=== PATIENT | male | born 1980 | race Caucasian/White ===

== ENCOUNTER → 2017-11-23 | Outpatient (CLI) | payer OTHER ==
[~2017-11-23] MED LIST: CLR10 PO; CLX20 PO; FLUT0.15 NAE; HYDR-5688 PO; PRVHFAIN PO
--- NOTE | 2017-11-23 07:54 | DIAGNOSTIC IMAGING REPORT ---
ABDOMEN COMPLETE (US) HISTORY: Pain. Nausea. EPIGASTRIC PAIN, ABDOMINAL DISTENTION. COMPARISON: 04/14/2012 FINDINGS: Pancreas: The pancreas demonstrates a normal echotexture. Liver: Fatty infiltration Gallbladder: Moderately contracted. No shadowing gallstones. CBD: 4 mm Kidneys: No hydronephrosis. 2 cm complex left renal cyst unchanged from the prior study. Spleen: Enlarged at 14 cm. This is unchanged in the prior study. Aorta: Normal in caliber. IVC: Patent. IMPRESSION: 1. Fatty infiltration of liver. 2. Contracted gallbladder. 3. Moderate splenomegaly 4. Complex left renal cyst. 5. All findings unchanged from the prior study. The above report was generated using voice recognition software. It may contain grammatical, syntax or spelling errors. Electronically signed by: Wojciech Sheffield M.D. 11/23/2017 7:52 AM Dictated Date/Time: 11/23/2017 7:50 AM
== END | disposition home or self-care (01) ==
LOC: C.ULTR 07:15
PROVIDERS: ATTEND Internal Medicine Gastroenterology
DX: R10.13 Epigastric pain (principal); R14.0 Abdominal distension (gaseous)

== ENCOUNTER 2018-04-04 19:56 | Emergency (ER) | payer OTHER ==
[~2018-04-04] VITALS: Ht 180.3 cm; Wt 96.6 kg
[2018-04-04 20:00] VITALS: Ht 180.3 cm; Wt 96.6 kg
[2018-04-04] MEDS ORDERED: ACETAMINOPHEN 500 MG TAB PO STA (20:11)
[2018-04-04] MEDS ORDERED: SODIUM CHLORIDE 0.9% 1000ML 2,000 ML IV STA (20:11)
--- NOTE | 2018-04-04 20:26 | EMERGENCY ROOM VISIT NOTE ---
History Report prepared by Nancy: Zheng Odonnell Under the Supervision of: Dr. Stephon Canales M.D. First contact with patient: 20:05 Chief Complaint: FEVER Stated Complaint: FEVER, NOT FEELING WELL FOR 10 DAYS History of Present Illness The patient is a 38 year old male who presents to the Emergency Room with complaints of a worsening illness that began 12 days ago. Patient states he has a headache, sore throat, and cough. He states he took Tylenol 6 hours ago. He adds he takes albuterol but it has not helped resolve his cough. Patient states he was at the doctors 2 days ago where he was discharged on prednisone. He states he felt good yesterday but around mid-day started to experience constant diarrhea. He adds he has not been able to get warm and has felt dizzy since. Patient adds that it "hurts to move anything" and adds his body aches feel worse now than his headache. Past medical history includes viral meningitis which the patient states his symptoms over the past day have felt similar to. Patient adds that the first 10 days of his illness felt like a "regular cold". He denies any recent travels. Patient adds he takes Flonase and Ferritin. [place] denies [place] bites. Patient denies nausea, vomiting, and rashes. Source of History: patient Onset: 12 days ago Position: head Timing: worsening Modifying Factors (Relieving): other (None) Associated Symptoms: + headache, + sorethroat, + cough, + diarrhea, No nausea, No vomiting, No rash Note: Positive body aches. Review of Systems See HPI for pertinent positives and negatives. A total of ten systems were reviewed and were otherwise negative. Past Medical & Surgical Medical Problems: (1) Sinus headache (2) Sinus infection Family History No pertinent family history Social History Smoking Status: Never Smoker Drug Use: none Marital Status: Housing Status: lives with family Occupation Status: employed Current/Historical Medications Scheduled Citalopram Hydrobromide (Citalopram Hydrobromide), 1 DOSE PO DAILY Escitalopram (Lexapro), 1 DOSE PO DAILY Fluticasone Propionate (Nasal) (Flonase Allergy Relief), 2 SPRAYS ROMAINE DAILY Loratadine (Claritin), 10 MG PO DAILY Scheduled PRN Albuterol (Ventolin Hfa), 2 PUFF PO DIRECTED PRN for Shortness of Breath Allergies Coded Allergies: No Known Allergies (Unverified , 04/04/18) Physical Exam Vital Signs Date Time Temp Pulse Resp B/P (MAP) Pulse Ox O2 Delivery O2 Flow Rate FiO2 04/04/18 22:55 88 18 112/60 98 04/04/18 21:59 37.7 99 22 115/56 96 Room Air 04/04/18 20:00 39.3 104 22 120/75 96 Room Air Physical Exam Physical Exam GENERAL: He is oriented to person, place, and time. He appears well-developed and well-nourished. He does not appear distressed. HENT: Exam performed. Head: Pain on palpation on frontal and maxillary sinuses otherwise normocephalic and atraumatic. Right Ear: External ear normal. No mastoid tenderness. Left Ear: External ear normal. No mastoid tenderness. Mouth/Throat: The oropharynx is clear and moist. No trismus in the jaw. No dental abscesses or uvula swelling. No oropharyngeal exudate or tonsillar abscesses. EYES: Conjunctivae and EOM are normal. Pupils are equal, round, and reactive to light. Right eye exhibits no discharge. Left eye exhibits no discharge. No scleral icterus. NECK: Normal range of motion. Neck supple. No JVD present. No spinous process tenderness present. No carotid bruit present. No rigidity. No tracheal deviation and normal range of motion present. No Brudzinski's sign and no Kernig 's sign noted. CV: Tachycardic rate, regular rhythm, normal heart sounds and intact distal pulses. There is no peripheral edema. Palpable radial pulses bue. PULM/CHEST: Effort normal and breath sounds normal. No respiratory distress. No stridor. He has no wheezes. He has no rales. Chest Wall: He exhibits no tenderness. ABD: The abdomen is soft. Bowel sounds are normal. He has no distension. No mass is present. There is no tenderness. There is no rebound, no guarding, no Lilly's sign and no tenderness at McBurney's point. Rovsig negative. MUSC/SKEL: Normal range of motion. There is no peripheral edema, tenderness or deformity. LYMPH: No cervical adenopathy. NEURO: He is alert and oriented to person, place, and time. He has normal strength. No cranial nerve deficit or sensory deficit. Coordination and gait normal. GCS eye subscore is 4. GCS verbal subscore is 5. GCS motor subscore is 6. Cerebellar tests wnl. SKIN: Skin is warm and dry. He is not diaphoretic. PSYCH: He has a normal mood and affect. Behavior is normal. Judgment and thought content normal. Medical Decision & Procedures ER Provider Diagnostic Interpretation: Radiology results as stated below per my review and radiologist interpretation: CHEST 2 VIEWS ROUTINE CLINICAL HISTORY: ro pneumonia dyspnea and cough. COMPARISON STUDY: No previous studies for comparison. FINDINGS: The bones soft tissues and hemidiaphragms are normal. The cardiomediastinal silhouette is normal. The lungs are clear. The pulmonary vasculature is normal. IMPRESSION: Negative chest. The above report was generated using voice recognition software. It may contain grammatical, syntax or spelling errors. Electronically signed by: Wojciech Sheffield M.D. 04/04/2018 8:49 PM Laboratory Results 04/04/18 20:23 Red Blood Count 4.90, Mean Corpuscular Volume 80.8, Mean Corpuscular Hemoglobin 28.4, Mean Corpuscular Hemoglobin Concent 35.1, Mean Platelet Volume 10.7, Neutrophils (%) (Auto) 70.0, Lymphocytes (%) (Auto) 17.0, Monocytes (%) (Auto) 12.4, Eosinophils (%) (Auto) 0.1, Basophils (%) (Auto) 0.1, Neutrophils # (Auto ) 5.97, Lymphocytes # (Auto) 1.45, Monocytes # (Auto) 1.06, Eosinophils # (Auto ) 0.01, Basophils # (Auto) 0.01 04/04/18 20:23 Test 04/04/18 20:23 04/04/18 21:30 White Blood Count 8.53 K/uL (4.8-10.8) Red Blood Count 4.90 M/uL (4.7-6.1) Hemoglobin 13.9 g/dL (14.0-18.0) Hematocrit 39.6 % (42-52) Mean Corpuscular Volume 80.8 fL (80-100) Mean Corpuscular Hemoglobin 28.4 pg (25-34) Mean Corpuscular Hemoglobin Concent 35.1 g/dl (32-36) Platelet Count 180 K/uL (130-400) Mean Platelet Volume 10.7 fL (7.4-10.4) Neutrophils (%) (Auto) 70.0 % Lymphocytes (%) (Auto) 17.0 % Monocytes (%) (Auto) 12.4 % Eosinophils (%) (Auto) 0.1 % Basophils (%) (Auto) 0.1 % Neutrophils # (Auto) 5.97 K/uL (1.4-6.5) Lymphocytes # (Auto) 1.45 K/uL (1.2-3.4) Monocytes # (Auto) 1.06 K/uL (0.11-0.59) Eosinophils # (Auto) 0.01 K/uL (0-0.5) Basophils # (Auto) 0.01 K/uL (0-0.2) RDW Standard Deviation 38.4 fL (36.4-46.3) RDW Coefficient of Variation 13.1 % (11.5-14.5) Immature Granulocyte % (Auto) 0.4 % Immature Granulocyte # (Auto) 0.03 K/uL (0.00-0.02) Anion Gap 9.0 mmol/L (3-11) Est Creatinine Clear Calc Drug Dose 89.7 ml/min Estimated GFR () 77.7 Estimated GFR (Non- 67.1 BUN/Creatinine Ratio 14.7 (10-20) Lactic Acid Level 1.3 mmol/L (0.4-2.0) Calcium Level 8.5 mg/dl (8.5-10.1) Total Bilirubin 0.5 mg/dl (0.2-1) Direct Bilirubin 0.1 mg/dl (0-0.2) Aspartate Amino Transf (AST/SGOT) 19 U/L (15-37) Alanine Aminotransferase (ALT/SGPT) 24 U/L (12-78) Alkaline Phosphatase 45 U/L (45-117) Total Protein 6.1 gm/dl (6.4-8.2) Albumin 3.5 gm/dl (3.4-5.0) Lipase 147 U/L (73-393) Lyme Disease IgG Antibody NEG (NEG) Lyme Disease IgM Antibody NEG (NEG) Urine Color DK YELLOW Urine Appearance CLEAR (CLEAR) Urine pH 6.0 (4.5-7.5) Urine Specific [place] 1.028 (1.000-1.030) Urine Protein NEG (NEG) Urine Glucose (UA) NEG (NEG) Urine Ketones TRACE (NEG) Urine Occult Blood NEG (NEG) Urine Nitrite NEG (NEG) Urine Bilirubin NEG (NEG) Urine Urobilinogen NEG (NEG) Urine Leukocyte Esterase NEG (NEG) Laboratory results reviewed by me Medications Administered Medications (Trade) Dose Ordered Sig/[place] Route Start Time Stop Time Status Last Admin Dose Admin Sodium Chloride 2,000 ml @ 999 mls/hr Q2H1M STAT IV 04/04/18 20:11 04/04/18 22:11 DC 04/04/18 20:22 999 MLS/HR Acetaminophen (Tylenol Tab) 1,000 mg NOW STAT PO 04/04/18 20:11 04/04/18 20:14 DC 04/04/18 20:21 1,000 MG ED Course 2005: The patient was evaluated in room C4. A complete history and physical exam was performed. 2011: Sodium Chloride 2000 ml @ 999 mls/hr IV and Tylenol Tab 1000mg PO 2246: Status post Tylenol and 2 L IV fluids, repeat vital signs stable. Patient states he feels better and his body aches and headache have resolved. Labs within normal limits including no elevated white count or lactic acid. Urinalysis and chest x-ray within normal limits. Patient states he has had multiple loose bowel movements while in the emergency department. No bloody stools or melena. No nausea or vomiting. Repeat abdominal exam within normal limits. Patient denies any recent antibiotic usage or travel. No suspicious food intake to cause the diarrhea. No meningeal signs on exam, Kernig and Brudzinski negative, no nuchal rigidity. Clinically there is very low concern for meningitis. I did have a very extensive discussion with the patient, significant other, and father at bedside about the possibilities of bacterial versus viral meningitis given his initial presentation and his history of having viral meningitis. I did offer to perform lumbar puncture, however after discussion with the patient and family they opted to not have lumbar puncture performed. Return precautions discussed with patient.DISCHARGE - Plan of care discussed with patient and questions answered. The patient was given both verbal and printed discharge instructions. The patient verbalized understanding and ability to comply. The patient is to seek outpatient follow up as noted in the discharge instructions. The patient verbalized understanding and ability to comply. The patient is discharged in stable condition. The patient was instructed to return for worsening symptom Medical Decision Status post Tylenol and 2 L IV fluids, repeat vital signs stable. Patient states he feels better and his body aches and headache have resolved. Labs within normal limits including no elevated white count or lactic acid. Urinalysis and chest x-ray within normal limits. Patient states he has had multiple loose bowel movements while in the emergency department. No bloody stools or melena. No nausea or vomiting. Repeat abdominal exam within normal limits. Patient denies any recent antibiotic usage or travel. No suspicious food intake to cause the diarrhea. No meningeal signs on exam, Kernig and Brudzinski negative, no nuchal rigidity. Clinically there is very low concern for meningitis. I did have a very extensive discussion with the patient, significant other, and father at bedside about the possibilities of bacterial versus viral meningitis given his initial presentation and his history of having viral meningitis. I did offer to perform lumbar puncture, however after discussion with the patient and family they opted to not have lumbar puncture performed. Return precautions discussed with patient.DISCHARGE - Plan of care discussed with patient and questions answered. The patient was given both verbal and printed discharge instructions. The patient verbalized understanding and ability to comply. The patient is to seek outpatient follow up as noted in the discharge instructions. The patient verbalized understanding and ability to comply. The patient is discharged in stable condition. The patient was instructed to return for worsening symptom Medication Reconcilliation Current Medication List: was personally reviewed by me Blood Pressure Screening Patient's blood pressure: Normal blood pressure Blood pressure disposition: Did not require urgent referral Impression Primary Impression: Viral infection Scribe Attestation The scribe's documentation has been prepared under my direction and personally reviewed by me in its entirety. I confirm that the note above accurately reflects all work, treatment, procedures, and medical decision making performed by me. The chart was completed utilizing [employer] Speech voice recognition software. Grammatical errors, random word insertions, pronoun errors, and incomplete sentences are an occasional consequence of this system due to software limitations, ambient noise, and hardware issues. Any formal questions or concerns about the content, text, or information contained within the body of this dictation should be directly addressed to the physician for clarification. Departure Information Dispostion Home / Self-Care Referrals Amadeo Batista MD (PCP) Forms HOME CARE DOCUMENTATION FORM, IMPORTANT VISIT INFORMATION Patient Instructions ED Viral Syndrome, My [facility] Additional Instructions Return to the emergency department if you develop fever greater than 100.4 that is not controlled with Tylenol or Motrin, light sensitivity, intractable headache, or your symptoms worsen.
[2018-04-04 20:33] LABS: BASO % 0.1 %; BASO ABS # 0.01 K/uL (0-0.2); EOS % 0.1 %; EOS ABS # 0.01 K/uL (0-0.5); HEMATOCRIT 39.6 % (42-52); HEMOGLOBIN 13.9 g/dL (14.0-18.0); IG# 0.03 K/uL (0.00-0.02); LYMPH ABS # 1.45 K/uL (1.2-3.4); MEAN CELL VOLUME 80.8 fL (80-100); MEAN CORPUSCULAR HEMOGLOBIN 28.4 pg (25-34); MEAN CORPUSCULAR HGB CONC 35.1 g/dl (32-36); MEAN PLATELET VOLUME 10.7 fL (7.4-10.4); MONO % 12.4 %; MONO ABS # 1.06 K/uL (0.11-0.59); NEUT ABS # 5.97 K/uL (1.4-6.5); PLATELET COUNT 180 K/uL (130-400); RED CELL DISTRIBUTION WIDTH CV 13.1 % (11.5-14.5); RED CELL DISTRIBUTION WIDTH SD 38.4 fL (36.4-46.3); WHITE BLOOD COUNT 8.53 K/uL (4.8-10.8)
[2018-04-04] MEDS ORDERED: ESCI10TA17 PO (20:45)
[2018-04-04] MEDS ORDERED: CITA10TA4 PO (20:45)
--- NOTE | 2018-04-04 20:50 | DIAGNOSTIC IMAGING REPORT ---
CHEST 2 VIEWS ROUTINE CLINICAL HISTORY: ro pneumonia dyspnea and cough. COMPARISON STUDY: No previous studies for comparison. FINDINGS: The bones soft tissues and hemidiaphragms are normal. The cardiomediastinal silhouette is normal. The lungs are clear. The pulmonary vasculature is normal. IMPRESSION: Negative chest. The above report was generated using voice recognition software. It may contain grammatical, syntax or spelling errors. Electronically signed by: Wojciech Sheffield M.D. 04/04/2018 8:49 PM Dictated Date/Time: 04/04/2018 8:48 PM
[2018-04-04 21:00] LABS: ALBUMIN 3.5 gm/dl (3.4-5.0); CALCIUM 8.5 mg/dl (8.5-10.1); CREATININE 1.35 mg/dl (0.60-1.40); TOTAL PROTEIN 6.1 gm/dl (6.4-8.2)
[2018-04-04 21:03] LABS: POTASSIUM 3.4 mmol/L (3.5-5.1)
[2018-04-04 21:59] VITALS: TEMP 37.7
[2018-04-04 22:55] VITALS: BP 112/60; PULSE 88; O2SAT 98
== END 2018-04-04 22:50 | disposition home or self-care (01) ==
LOC: C.EDB 19:57 → C.EDC 22:50
DX: B34.9 Viral infection, unspecified (principal); R00.0 Tachycardia, unspecified; Z79.899 Other long term (current) drug therapy

== ENCOUNTER → 2018-04-14 | Outpatient (CLI) | payer OTHER ==
[~2018-04-14] MED LIST changes: +CITA10TA4 PO; -CLX20 PO; +ESCI10TA17 PO; -HYDR-5688 PO; +OPTIRAY 320 IV PRN
--- NOTE | 2018-04-14 13:48 | DIAGNOSTIC IMAGING REPORT ---
ABDOMEN AND PELVIS CT WITH IV AND ORAL CONTRAST CT DOSE: 797.16 mGycm HISTORY: Chronic generalized abdominal pain. TECHNIQUE: Multiaxial CT images of the abdomen and pelvis were performed following the use of intravenous and oral contrast. A dose lowering technique was utilized adhering to the principles of ALARA. COMPARISON STUDY: Abdomen and pelvis CT 07/22/2011. FINDINGS: The lung bases are clear. No pneumoperitoneum. No pneumatosis. No fractures within the visualized osseous structures. Stable calcifications within the left hepatic lobe. The gallbladder, pancreas, adrenal glands, and right kidney are unremarkable. No hydronephrosis. Stable 2 cm hypodense lesion within the interpolar region of the left kidney. Given the long-term stability this favors a benign cyst. The spleen remains mildly enlarged measuring 13 cm in length. No retroperitoneal lymphadenopathy. A few enlarged ileocolic lymph nodes. Dominant lymph node measures 17 x 13 mm. Normal bladder. No pelvic free fluid. No bowel wall thickening or obstruction. The appendix is surgically absent. There are few additional scattered subcentimeter pericolonic lymph nodes near the proximal to mid transverse colon. IMPRESSION: 1. Mild ileocolic lymphadenopathy. There are greater than expected pericolonic lymph nodes adjacent to the descending and transverse colon. The spleen remains mildly enlarged. These findings are nonspecific could represent a chronic inflammatory bowel disease, mesenteric adenitis, or less likely a lymphoproliferative disorder. GI consultation and six-month abdomen and pelvis CT follow up is recommended to ensure stability/resolution of the lymph nodes. Of note, there is no bowel wall thickening at this time to suggest an acute inflammatory process. . 2. Prior appendectomy. 3. Stable 2 cm hypodense lesion within the left kidney. This likely represents a cyst. Electronically signed by: Ashok Ramirez M.D. 04/14/2018 1:47 PM Dictated Date/Time: 04/14/2018 1:34 PM
== END | disposition home or self-care (01) ==
LOC: C.CTS 12:56
PROVIDERS: ATTEND Family Medicine
DX: R19.7 Diarrhea, unspecified (principal); R10.84 Generalized abdominal pain; R53.81 Other malaise; N28.9 Disorder of kidney and ureter, unspecified